=== PATIENT | female | born 1995 | race Caucasian/White ===

== ENCOUNTER 2017-06-22 21:56 | Emergency (ER) | payer OTHER ==
[~2017-06-22] VITALS: Ht 167.6 cm; Wt 81.6 kg
[2017-06-22 21:58] VITALS: BP 135/86
--- NOTE | 2017-06-22 22:36 | NUR ---
PT. AMBULATED TO ER BED 11
--- NOTE | 2017-06-22 22:37 | NUR ---
22Y F BIB FAMILY C/O L FLANK PAIN X 2 HOURS. PT STATES PAIN IS NON RADIATING, CONSTANT SHARP PAIN. PT ALSO C/O N/V/D BUT DENIES ANY SOB, CP AT THE MOMENT. PT AAOX4 BREATHING IS UNLABORED AND CLEAR. PT AMBULATED TO ER BED WITH STEADY GAIT.
[2017-06-22] MEDS ORDERED: MORPHINE SULFATE 2 MG/ML SYR IVP ONE (22:50)
[2017-06-22] MEDS ORDERED: NACL 0.9% 1,000 ML IV ONE (22:50)
--- NOTE | 2017-06-22 23:45 | NUR ---
Patient taken to CT scan via wheelchair by tech.
--- NOTE | 2017-06-23 01:00 | NUR ---
IV removed, catheter intact and site benign. Applied folded 4x4 gauze and tape to stop bleeding.
--- NOTE | 2017-06-23 01:07 | NUR ---
Patient discharged with v/s stable. Written and verbal after care instructions given and explained. Patient alert, oriented and verbalized understanding of instructions. Ambulatory with steady gait. All questions addressed prior to discharge. ID band removed. Patient advised to follow up with PMD. Rx of MOTRIN 800MG AND NORCO 5/325MG given. Patient educated on indication of medication including possible reaction and side effects. Opportunity to ask questions provided and answered.
[2017-06-23 01:08] VITALS: BP 119/74
== END 2017-06-23 01:07 | disposition home or self-care (01) ==
LOC: MED 21:56
DX: N20.0 Calculus of kidney (principal); N36.8 Other specified disorders of urethra
CPT/HCPCS: 74176; 81002; 81025; 96361; 96374; 99284; J2270; J7030